=== PATIENT | male | born 1960 | race Caucasian/White ===

== ENCOUNTER 2018-11-26 09:28 | Emergency (ER) | payer OTHER ==
[~2018-11-26] VITALS: Ht 177.8 cm; Wt 102.1 kg
[2018-11-26] MEDS ORDERED: PROTONIX20 MG PO (09:39)
[2018-11-26] MEDS ORDERED: ZYRTEC10 MG PO (09:39)
--- NOTE | 2018-11-26 12:45 | EKG ---
[facility] [address] [facility] [place] [address] Signed Sinus bradycardia Right bundle branch block Abnormal ECG No previous ECGs available Confirmed by RAHEEL FELDER MD ([id number]) on 11/26/2018 12:45:19 PM Electronically Signed By: RAHEEL FELDER MD 11/26/18 1245 PATIENT NAME: BAM CLEMONS Electrocardiogram DATE OF : 56 PHYSICIAN: RAHEEL FELDER MD REPORT #: [id number] REPORT IS CONFIDENTIAL AND NOT TO BE RELEASED WITHOUT AUTHORIZATION
== END 2018-11-26 11:34 | disposition home or self-care (01) ==
LOC: ED 09:28
DX: H53.9 Unspecified visual disturbance (principal); Z88.5 Allergy status to narcotic agent; Z79.899 Other long term (current) drug therapy
CPT/HCPCS: 70450; 80053; 85025; 85610; 93005; 93010; 99284-25